=== PATIENT | female | born 1975 | race Caucasian/White ===

== ENCOUNTER → 2021-02-08 14:43 | Outpatient (CLI) | payer OTHER, SELFPAY ==
--- NOTE | ~2021-02-08 | MM_ITS ---
EXAMINATION: MM screening [facility] BI w donald HISTORY: Screening mammogram TECHNIQUE: Craniocaudal and mediolateral oblique 3-D tomosynthesis images were obtained and synthetic 2-D images were generated. CAD analysis was submitted and interpreted. COMPARISON: 09/07/2019, 08/13/2018, 07/22/2017, 07/16/2017 BREAST PARENCHYMAL COMPOSITION: There are scattered areas of fibroglandular density. FINDINGS: There is no evidence of suspicious mass, calcification, or architectural distortion to sugg est malignancy in either breast. There has been no suspicious interval change. IMPRESSION: 1. No mammographic evidence of malignancy. 2. Recommend routine screening mammography in one year. BI-RADS Category 1: Negative Reviewed, dictated and finalized at location A.
== END ==
PROVIDERS: PCP Family Medicine; Visit Provider Family Medicine
DX: Z12.31 Encounter for screening mammogram for malignant neoplasm of breast (principal)
CPT/HCPCS: 77063; 77067

== ENCOUNTER → 2021-04-12 14:15 | Outpatient (CLI) | payer OTHER, SELFPAY ==
--- NOTE | ~2021-04-12 | MR_ITS ---
EXAMINATION: MR cervical spine wo/w con DATE: 04/12/2021 15:58 INDICATION: Multiple sclerosis. TECHNIQUE: Magnetic resonance imaging (MRI) of the cervical spine was performed without and with 17 m L MultiHance intravenous contrast. Sequences included sagittal and axial T2-weighted FSE, sagittal ST IR FSE, and sagittal and axial T1-weighted FSE. Postcontrast sequences included sagittal and axial T1 -weighted FS FSE. COMPARISON: Cervical spine MRI 10/14/2018 FINDINGS: Bone alignment is normal. Vertebral body heights are normal. There is mildly decreased disc height at C3-C4. There are lesions of increased T2-weighted signal intensity in the spinal cord at C 1 and C4. The following disc levels are specifically discussed: C2-C3: The disc does not extend beyond the endplate margin. There is no uncovertebral joint osteoarth ritis. There is moderate left facet joint osteoarthritis. There is no neural foraminal stenosis. Ther e is no central canal stenosis. C3-C4: The disc is bulging. There is severe bilateral uncovertebral joint osteoarthritis. There is no facet joint osteoarthritis. There is mild right and moderate left neural foraminal stenosis. There i s mild central canal stenosis. C4-C5: The disc is bulging. There is moderate bilateral uncovertebral joint osteoarthritis. There is no facet joint osteoarthritis. There is mild bilateral neural foraminal stenosis. There is mild centr al canal stenosis. C5-C6: The disc is bulging. There is moderate right and severe left uncovertebral joint osteoarthriti s. There is no facet joint osteoarthritis. There is mild right and moderate left neural foraminal azra nosis. There is mild central canal stenosis. C6-C7: The disc is bulging. There is mild bilateral uncovertebral joint osteoarthritis. There is no f acet joint osteoarthritis. There is mild right neural foraminal stenosis. There is no central canal s tenosis. C7-T1: The disc does not extend beyond the endplate margin. There is no uncovertebral joint osteoarth ritis. There is moderate bilateral facet joint osteoarthritis. There is no neural foraminal stenosis. There is no central canal stenosis. IMPRESSION: 1. Stable spinal cord lesions, consistent with multiple sclerosis. 2. Moderate cervical spondylosis. Reviewed, dictated and finalized at location A.
--- NOTE | ~2021-04-12 | MR_ITS ---
EXAMINATION: MR brain/brain stem wo/w con DATE: 04/12/2021 16:05 INDICATION: Multiple sclerosis. TECHNIQUE: Magnetic resonance imaging (MRI) of the brain and brainstem was performed without and with 17 mL MultiHance intravenous contrast. Sequences included sagittal and axial T1-weighted FLAIR, axia l T1-weighted FSE, axial diffusion-weighted FS EPI, sagittal T2-weighted FLAIR, axial T2*-weighted GR E, axial T2-weighted FLAIR Propeller, and axial T2-weighted Propeller. Postcontrast sequences include d axial, coronal, and sagittal T1-weighted FSE. Apparent diffusion coefficient (ADC) maps were create d. COMPARISON: Brain MRI 10/14/2018 FINDINGS: There are approximately 25-30 total lesions of increased T2-weighted signal intensity in th e brain. Of these lesions, several are periventricular, a few are juxtacortical, and one is infratent orial in the medulla. None of the lesions enhance. There is no intracranial hemorrhage or acute ische vernell infarct. The ventricles are normal in size. The paranasal sinuses are clear. The orbits are darryl l. There is a trace right mastoid effusion. IMPRESSION: 1. Stable number and distribution of brain lesions, consistent with multiple sclerosis. Reviewed, dictated and finalized at location A. IMPRESSION: 1. Stable number and distribution of brain lesions, consistent with multiple sc lerosis.
[2021-04-12 14:43] LABS: Estimated Glomerular Filt Rate > 60
== END ==
PROVIDERS: Visit Provider Psychiatry & Neurology Neurology
DX: G35 Multiple sclerosis (principal); M47.813 Spondylosis without myelopathy or radiculopathy, cervicothoracic region; G95.9 Disease of spinal cord, unspecified
CPT/HCPCS: 70553; 72156; A9577

== ENCOUNTER → 2022-06-04 14:51 | Outpatient (CLI) | payer OTHER, SELFPAY ==
--- NOTE | ~2022-06-04 | MM_ITS ---
EXAMINATION: MM screening [facility] BI w donald HISTORY: Screening mammogram TECHNIQUE: Craniocaudal and mediolateral oblique 3-D tomosynthesis images were obtained and synthetic 2-D images were generated. CAD analysis was submitted and interpreted. COMPARISON: 02/08/2021, 09/07/2019, 08/13/2018 bilateral screening mammogram examinations BREAST PARENCHYMAL COMPOSITION: There are scattered areas of fibroglandular density. FINDINGS: There is no evidence of suspicious mass, calcification, or architectural distortion to sugg est malignancy in either breast. There has been no suspicious interval change. IMPRESSION: 1. No mammographic evidence of malignancy. 2. Recommend routine screening mammography in one year. BI-RADS Category 1: Negative Reviewed, dictated and finalized at location A.
== END ==
PROVIDERS: PCP Family Medicine; Visit Provider Family Medicine
DX: Z12.31 Encounter for screening mammogram for malignant neoplasm of breast (principal)
CPT/HCPCS: 77063; 77067

== ENCOUNTER → 2022-11-01 11:24 | Outpatient (CLI) | payer OTHER, SELFPAY ==
--- NOTE | ~2022-11-01 | XR_ITS ---
Left foot Technique: AP, oblique, and lateral weightbearing views were obtained. Clinical History: Injury Findings: No acute fracture or dislocation is seen. Osseous alignment is anatomic. Joint spaces are p reserved without erosive or degenerative change. Minimal plantar calcaneal spur noted. Soft tissues a re unremarkable. Impression: Minimal plantar calcaneal spur, otherwise unremarkable exam. Reviewed, dictated and finalized at location . OGRAPHY TECH Impression: Minimal plantar calcaneal spur, otherwise unremarkable exam.
== END ==
PROVIDERS: PCP Family Medicine; Visit Provider Nurse Practitioner Family
DX: S99.929A Unspecified injury of unspecified foot, initial encounter (principal); M77.32 Calcaneal spur, left foot
CPT/HCPCS: 73630

== ENCOUNTER → 2022-12-30 11:12 | Outpatient (CLI) | payer OTHER, SELFPAY ==
--- NOTE | ~2022-12-30 | XR_ITS ---
Supine and upright views of the abdomen Clinical history: Abdominal pain Findings: Bowel gas pattern is nonspecific. No evidence for obstruction or free air. 2.5 cm periphera lly calcified mass present in the right upper quadrant. Probable cholecystectomy clips. Osseous struc tures are intact. Impression: 2.5 cm peripherally calcified lesion in the right upper quadrant. This is of uncertain etiology as th ere are probable cholecystectomy clips adjacent. Retained biliary stone versus other peripherally akash cified mass are within the differential diagnosis. Consider cross-sectional imaging to further evalua te. Reviewed, dictated and finalized at [facility]. [employer] Impression: 2.5 cm peripherally calcified lesion in the right upper quadrant. This is of un certain etiology as there are probable cholecystectomy clips adjacent. Retained biliary stone versus other peripherally calcified mass are within the differen tial diagnosis. Consider cross-sectional imaging to further evaluate.
== END ==
PROVIDERS: PCP Family Medicine; Visit Provider Nurse Practitioner Family
DX: R39.9 Unspecified symptoms and signs involving the genitourinary system (principal); M54.50 Low back pain, unspecified; R93.5 Abnormal findings on diagnostic imaging of other abdominal regions, including retroperitoneum
CPT/HCPCS: 74018

== ENCOUNTER → 2023-05-29 14:43 | Outpatient (CLI) | payer OTHER, SELFPAY ==
--- NOTE | ~2023-05-29 | MR_ITS ---
EXAMINATION: MR cervical spine wo con DATE: 05/29/2023 15:45 INDICATION: Multiple sclerosis. TECHNIQUE: Magnetic resonance imaging (MRI) of the cervical spine was performed without intravenous c ontrast. COMPARISON: Cervical spine MRI 04/12/2021 FINDINGS: There is 6 degrees dextrocurvature of cervical spine. Vertebral body heights are normal. Th ere is moderately decreased disc height at C3-C4 and mildly decreased disc height at C6-C7. There are lesions of increased T2-weighted signal intensity in the spinal cord at C1 and C4. There is a 4.0 cm lipoma in right posterior superior thorax. The following disc levels are specifically discussed: C2-C3: The disc does not extend beyond the endplate margin. There is no uncovertebral joint osteoarth ritis. There is moderate right and severe left facet joint osteoarthritis. There is mild left neural foraminal stenosis. There is no central canal stenosis. C3-C4: The disc is bulging. There is severe bilateral uncovertebral joint osteoarthritis. There is no facet joint osteoarthritis. There is mild bilateral neural foraminal stenosis. There is mild central canal stenosis. C4-C5: There is a central extrusion. There is moderate bilateral uncovertebral joint osteoarthritis. There is mild bilateral facet joint osteoarthritis. There is mild bilateral neural foraminal stenosis . There is mild central canal stenosis. C5-C6: The disc is bulging. There is severe bilateral uncovertebral joint osteoarthritis. There is no facet joint osteoarthritis. There is mild right and moderate left neural foraminal stenosis. There i s mild central canal stenosis. C6-C7: There is a right central extrusion. There is moderate bilateral uncovertebral joint osteoarthr itis. There is mild bilateral facet joint osteoarthritis. There is mild right neural foraminal stenos is. There is mild central canal stenosis. C7-T1: The disc does not extend beyond the endplate margin. There is no uncovertebral joint osteoarth ritis. There is moderate bilateral facet joint osteoarthritis. There is no neural foraminal stenosis. There is no central canal stenosis. IMPRESSION: 1. Stable spinal cord lesions, consistent with multiple sclerosis. 2. Stable moderate cervical spondylosis. Reviewed, dictated and finalized at location A.
--- NOTE | ~2023-05-29 | MR_ITS ---
EXAMINATION: MR brain/brain stem wo con DATE: 05/29/2023 15:41 INDICATION: Multiple sclerosis. TECHNIQUE: Magnetic resonance imaging (MRI) of the brain and brainstem was performed without intraven ous contrast. COMPARISON: Brain MRI 04/12/2021 FINDINGS: There are approximately 25-30 total lesions of increased T2-weighted signal intensity in th e brain. Of these lesions, several are periventricular, a few are juxtacortical, and one is infratent orial in the midbrain. There is no acute ischemic infarct or intracranial hemorrhage. The ventricles are normal in size. The paranasal sinuses are clear. The orbits are normal. There is a trace right ma stoid effusion. IMPRESSION: 1. Stable number and distribution of brain lesions, consistent with multiple sclerosis. Reviewed, dictated and finalized at location A. IMPRESSION: 1. Stable number and distribution of brain lesions, consistent with multiple sc lerosis.
== END ==
PROVIDERS: PCP Psychiatry & Neurology Neurology; Visit Provider Psychiatry & Neurology Neurology
DX: G35 Multiple sclerosis (principal); M47.812 Spondylosis without myelopathy or radiculopathy, cervical region
CPT/HCPCS: 70551; 72141